=== PATIENT | female | born 1940 | race Caucasian/White ===

== ENCOUNTER → 2016-05-11 | Outpatient (CLI) | payer MEDICARE, MEDICAID ==
[~2016-05-11] MED LIST: ACET-2128 PO; AMIL5TAB PO; ARIP5TAB10 PO; ATOR20TA27 PO; CALC-586 PO; DIVA250T PO; DOCU-168 PO; ESCI10TA44 PO; FURO-35 PO; GABA-218 PO; GUAI-1166 PO; HYDR-2164 PO; IPRA3AMP AEROSOL; LEVO250T2 PO; LORA0.5T2 PO; POLY15DR57 BOTH EYES; POTA20TA68 PO; PROP10TA PO; RALO60TA12 PO; RANI150C11 PO; SALI10004 PO; TEMA7.5C20 PO
[2016-05-11 06:23] LABS: ANION GAP 10 MEQ/L (5-15); BUN/CREATININE RATIO 23 RATIO (6-26); CALCIUM 9.5 MG/DL (8.4-10.2); CHLORIDE 103 MEQ/L (98-107); CO2 - CARBON DIOXIDE 33 MEQ/L (22-30); CREATININE 1.1 MG/DL (0.7-1.2); GLOMERULAR FILTRATION RATE 48; GLUCOSE 88 MG/DL (65-110); POTASSIUM 3.8 MEQ/L (3.6-5); SODIUM 146 MEQ/L (134-144)
== END ==
LOC: LABNH.BH 00:14
PROVIDERS: ATTEND Family Medicine
DX: E78.5 Hyperlipidemia, unspecified (principal); E87.6 Hypokalemia
CPT/HCPCS: 36415; 80048; P9604

== ENCOUNTER → 2016-06-04 | Outpatient (CLI) | payer MEDICARE, MEDICAID ==
[2016-06-04 08:52] LABS: BLOOD, URINE NEGATIVE (NEGATIVE); COLOR,URINE YELLOW (YELLOW); LEUKOCYTE ESTERASE ,URINE TRACE (NEGATIVE); NITRITE,URINE NEGATIVE (NEGATIVE); UROBILINOGEN,URINE 0.2 EU/DL (NORMAL)
== END ==
LOC: LABN.BH 08:42
PROVIDERS: ATTEND Family Medicine
DX: R32 Unspecified urinary incontinence (principal)
CPT/HCPCS: 81003; 87086

== ENCOUNTER → 2016-06-11 | Outpatient (CLI) | payer MEDICARE, MEDICAID ==
[2016-06-11 07:56] LABS: HCT - HEMATOCRIT 39.9 % (36-46); HGB - HEMOGLOBIN 12.7 GM/DL (12-16); MEAN CORPUSCULAR HGB 32.1 UUG (26-34); MEAN CORPUSCULAR HGB CONC(MCHC 31.8 GM/DL (31-37); MEAN CORPUSCULAR VOLUME 100.8 UM3 (80-100); MEAN PLATELET VOLUME 10.6 UM3 (9.4-12.4); RED BLOOD COUNT 3.96 M/MM3 (4.00-5.20); WBC - WHITE BLOOD COUNT 6.3 T/MM3 (4.5-11.0)
[2016-06-11 08:05] LABS: ALBUMIN 3.2 G/DL (3.5-5.0); ALBUMIN/GLOBULIN RATIO 1.2 RATIO (1.1-2.2); ALKALINE PHOSPHATASE 63 U/L (38-126); ALT (SGPT) 24 U/L (9-52); ANION GAP 11 MEQ/L (5-15); AST (SGOT) 17 U/L (14-36); BUN/CREATININE RATIO 17 RATIO (6-26); CALCIUM 9.2 MG/DL (8.4-10.2); CHLORIDE 103 MEQ/L (98-107); CO2 - CARBON DIOXIDE 34 MEQ/L (22-30); CREATININE 1.3 MG/DL (0.7-1.2); GLOMERULAR FILTRATION RATE 40; GLUCOSE 98 MG/DL (65-110); POTASSIUM 3.6 MEQ/L (3.6-5); SODIUM 148 MEQ/L (134-144); TOTAL PROTEIN 5.8 G/DL (6.3-8.2)
[2016-06-11 08:24] LABS: EOSINOPHILS # (MANUAL) 0.4 T/MM3 (0-0.5); LYMPHOCYTES # (MANUAL) 1.6 T/MM3 (1-4.8); METAMYELOCYTES # 0.1 T/MM3; MONOCYTES # (MANUAL) 0.6 T/MM3 (0-0.8); NEUTROPHILS #(MANUAL)-ABSOLUTE 3.6 T/MM3 (1.8-7.7); TOTAL CELLS COUNTED 100 %
[2016-06-11 08:36] LABS: THYROID STIM HORMONE-TSH 2.39 MIU/L (0.47-4.68)
== END ==
LOC: LABNH.BH 00:19
PROVIDERS: ATTEND Psychiatry & Neurology Psychiatry
DX: R41.841 Cognitive communication deficit (principal); Z79.899 Other long term (current) drug therapy
CPT/HCPCS: 36415; 80053; 82607; 84443; 85007; 85027; 86592; P9604

== ENCOUNTER → 2016-06-16 | Outpatient (CLI) | payer MEDICARE, MEDICAID | LOC: LABNH.BH 01:37 | PROVIDERS: ATTEND Psychiatry & Neurology Psychiatry | DX: R41.9 Unspecified symptoms and signs involving cognitive functions and awareness (principal) | CPT/HCPCS: 36415; 82746; 83090; 83921; P9604 ==

== ENCOUNTER → 2016-06-19 | Outpatient (CLI) | payer MEDICARE, MEDICAID ==
[~2016-06-19] MED LIST changes: +IOHEXOL 300 MG/ML 50ml INJECTION ONE; +NORMAL SALINE 100 ML ONE; +SALINE FLUSH 10ml SYRINGE ONE
--- NOTE | 2016-06-19 09:40 | DI ---
Indication: ITS.REASON: CONFUSION PROCEDURE: CT HEAD W/WO CONTRAST: Comparison: July 14, 2013 Technique: Axial CT images through the head were performed without and with IV contrast. Iterative Reconstruction dose reducing technique was utilized. 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 The ventricles are unchanged. The brainstem, cerebellum, and cerebral hemispheres have a normal morphology and CT attenuation. No hemorrhage, mass effect, mass lesions, or edema is evident. No areas of abnormal enhancement are seen. The visualized portions of the skull base, sinuses, and calvarium demonstrate no abnormality. IMPRESSION: No acute intracranial abnormality. Stable head CT. .
== END ==
LOC: IMA 08:16
PROVIDERS: ATTEND Psychiatry & Neurology Psychiatry
DX: R41.0 Disorientation, unspecified (principal)
CPT/HCPCS: 70470; J7050; Q9967

== ENCOUNTER → 2016-07-06 | Outpatient (CLI) | payer MEDICARE, MEDICAID ==
[~2016-07-06] MED LIST changes: -IOHEXOL 300 MG/ML 50ml INJECTION ONE; -NORMAL SALINE 100 ML ONE; -SALINE FLUSH 10ml SYRINGE ONE
[2016-07-06 06:15] LABS: URIC ACID 8.8 MG/DL (2.5-7.5)
[2016-07-06 06:20] LABS: VALPROIC ACID/DEPAKOTE 82.4 UG/ML (50-120)
== END ==
LOC: LABNH.BH 01:01
PROVIDERS: ATTEND Psychiatry & Neurology Psychiatry
DX: F32.9 Major depressive disorder, single episode, unspecified (principal)
CPT/HCPCS: 36415; 80164; 84550; P9604

== ENCOUNTER → 2016-07-16 | Outpatient (CLI) | payer MEDICARE, MEDICAID ==
--- NOTE | 2016-07-16 11:15 | DI ---
Indication: ITS.REASON: G20 Parkinson's disease PROCEDURE: MRI BRAIN W/O CONTRAST: Encounter: Initial Comparisons: Head CT dated June 19, 2016 Technique: Multiplanar, multisequence, MR imaging of the head without contrast was acquired. FINDINGS: Severe artifacts degrading the diffusion-weighted sequences precluding evaluation of the posterior fossa and occipital lobes as well as the right parietal lobe. Moderate generalized atrophy. The ventricles are proportional to atrophy and stable from the comparison. 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 There are small nonspecific punctate areas of T2-weighted and T2 FLAIR weighted signal abnormality in the deep frontoparietal white matter that most likely represent small vessel ischemic disease. This is of a degree that is considered to be normal for the patient's age. The brain stem, cerebellum, and cerebral hemispheres otherwise have a normal morphologic appearance as well as MR signal intensity on all pulse sequences. No acute infarct in the visualized brain parenchyma on the diffusion sequences with limitations as above. There is no evidence of an intracranial mass lesion or intracranial hemorrhage. The visualized portions of the orbits, calvarium, paranasal sinuses, and skull base demonstrate no significant abnormality. IMPRESSION: Shunted hydrocephalus. Moderate atrophy, otherwise unremarkable exam for the patient's age. .
== END ==
LOC: IMA 09:15
PROVIDERS: ATTEND Electrodiagnostic Medicine
DX: G20 Parkinson's disease (principal); G91.4 Hydrocephalus in diseases classified elsewhere; R41.3 Other amnesia; Z98.2 Presence of cerebrospinal fluid drainage device

== ENCOUNTER 2016-09-02 09:46 | Inpatient (IN) ==
[2016-09-02] MEDS ORDERED: ONDANSETRON ODT 4 MG TABLET PO ONE (10:12)
[2016-09-02] MEDS ORDERED: HYDROCODONE/APAP 5mg/325mg TABLET PO ONE (10:12)
--- NOTE | 2016-09-02 10:13 | Emergency Department Report ---
Lower Extremity Injury HPI - General Chief Complaint: Extremity Injury, Lower Stated Complaint: fall Time Seen by Provider: 09/02/16 10:11 Source: patient Mode of arrival: wheelchair Limitations: no limitations - History of Present Illness HPI Narrative: 76yo woman presents to the ER today after a fall. Pts left ankle is bruised, swollen, TTP, and cannot bear weight. Pt has a baseline tremor. MD complaint: ankle injury Onset (ago): hour(s) Place: home Severity: severe Exacerbating factors: weight bearing Context: fall Associated symptoms: snap/pop sensation, unable to bear weight Treatments prior to arrival: cold therapy - Related Data Home Medications Medication Instructions Recorded Confirmed Amiloride HCl 5 mg PO DAILY #0 12/31/09 09/02/16 Propranolol HCl 5 mg PO BID #0 12/31/09 09/02/16 hydroCHLOROthiazide 25 mg PO DAILY #0 12/31/09 09/02/16 [Hydrochlorothiazide] raNITIdine HCl [Ranitidine HCl] 150 mg PO HS #0 10/14/11 09/02/16 Escitalopram Oxalate [Lexapro] 10 mg PO DAILY #0 11/30/11 09/02/16 Furosemide 10 mg PO DAILY #0 11/30/11 09/02/16 Gabapentin 200 mg PO TID #0 11/30/11 09/02/16 Atorvastatin Calcium 40 mg PO HS #0 04/22/12 09/02/16 Divalproex ER [Depakote ER] 750 mg PO BID #0 tab 09/01/14 09/02/16 Raloxifene HCl 60 mg PO DAILY #0 09/01/14 09/02/16 Acetaminophen [Acetaminophen Extra 500 mg PO Q4H PRN 09/02/16 09/02/16 Strength] Calcium 600 + D [Caltrate + D] 1 tab PO BID 09/02/16 09/02/16 Docusate Sodium [Colace] 100 mg PO DAILY PRN 09/02/16 09/02/16 Loratadine [Claritin] 10 mg PO ACB 09/02/16 09/02/16 Multivitamin with Iron [One Daily 1 tab PO DAILY 09/02/16 09/02/16 with Iron] Polyvinyl Alcohol [Artificial 2 drop EACH EYE Q4H PRN 09/02/16 09/02/16 Tears] Potassium Chloride [Klor-Con 10] 30 meq PO DAILY 09/02/16 09/02/16 Saliva Substitute Mouthwash 1 dose MM DAILY PRN 09/02/16 09/02/16 [Biotene Dry Mouth Oral Rinse] Trazodone [Desyrel] 50 mg PO HS 09/02/16 09/02/16 Trazodone [Desyrel] 100 mg PO HS PRN 09/02/16 09/02/16 Allergies Allergy/AdvReac Type Severity Reaction Status Date / Time celecoxib Allergy Unknown Verified 09/02/16 10:05 niacin Allergy Unknown Verified 09/02/16 10:05 oxybutynin Allergy Unknown Verified 09/02/16 10:05 [facility] Patient Stated Medical History Cerebrovascular Accident Yes Parkinson's Disease Yes Glaucoma Yes Hypotension Yes Gastroesophageal Reflux Yes Disease Hx Incontinence Yes Osteoarthritis Yes Bipolar Disorder Yes Physical Exam - Limitations Limitations: no limitations - General General appearance: alert, in no apparent distress, obese - Normal Exams: Head:: Normocephalic without trauma Eyes:: Pupils are PERRLA w/ EOMI, No scleral icterus, irritation, or foreign bodies noted ENMT:: No facial trauma, nasal exudates, pharyngeal erythema, or exudates are noted Neck:: Full range of motion, without adenopathy, JVD, bruits or thyromegaly Chest/Respirations:: Clear all nunez Cardiovascular:: Regular rate and rhythm Abdomen:: Bowel sounds positive Lymphatic:: No lymphadenopathy, or lymphedema noted Integumentary:: No rashes, hives, or bruising noted, hair and nails, without abnormality Neurological:: Patient is alert, and oriented, cranial nerves, motor/sensory/ cerebellar, exams w/o gross deficits, to observation Psychiatric:: Patient exhibits, appropriate attention, emotion and affect - Expanded Lower Extremity Exam Ankle exam: Present: tenderness, swelling, abrasion (Medially), ecchymosis, deformity, crepitus, dislocation, tenderness over talofibular lig. Absent: laceration 1 - Swelling/ecchymosis 2 - Swelling/ecchymosis Neurovascular/Tendon exam: Present: normal capillary refill - Skin Skin exam: Present: warm, dry, erythema, other (abrasion over medial malleolus) Course Course Narrative: Informed pt of dx and likelihood of surgery. Pt is very afraid of surgery due to 'dementia' after waking from anesthesia. Stated that I would inform ortho, and she should inform anesthesia of her concerns and they could help tailor anesthesia or treat post-op to prevent dementia issues. Orthopedic surgeon presented to the ER. After his own evaluation and diagnosis, pt was given a hematoma block and ankle was reduced in the ER. Leg was splinted. After discussion with his partner, Ortho has decided to admit pt and plan for surgical fixation tomorrow. - Consultations Consultation #1: Dr. Gloria: Will come to ER to set ankle. Requests eqipment/meds at bedside. Time: 10:53 Vital Signs Temperature 98.3 F 09/02/16 09:46 Pulse Rate 85 09/02/16 09:46 Respiratory Rate 16 09/02/16 09:46 Blood Pressure 146/82 H 09/02/16 09:46 Pulse Oximetry 93 09/02/16 09:46 Temperature 98.4 F 09/04/16 07:31 Pulse Rate 104 H 09/04/16 07:31 Respiratory Rate 16 09/04/16 07:31 Blood Pressure 130/68 09/04/16 07:31 Pulse Oximetry 93 09/04/16 07:31 Extremity Injury, Lower - Differential Diagnosis Likely: ankle sprain and strain, acute internal derangement of knee, ankle fracture - Medical Records Attestation: I reviewed the patient's medical records. - Lab Data Result diagrams: 09/04/16 04:50 09/04/16 04:50 - Radiology Data Attestation: I reviewed the patient's radiology results. Ankle: Displaced closed posttraumatic trimalleolar ankle fracture with severe lateral subluxation of the talus. Tib/fib: No acute fracture of the proximal tibia or fibula. Disposition Clinical Impression: Closed displaced bimalleolar fracture of left ankle Qualifiers: Encounter type: initial encounter Qualified Code(s): S82.842A - Displaced bimalleolar fracture of left lower leg, initial encounter for closed fracture Disposition: 02 To [facility] Condition: Stable Time of Disposition: 12:30 - Seen By: physician
--- NOTE | 2016-09-02 10:57 | XRay Report ---
Indication: Ankle pain PROCEDURE: XR ankle LT min 3V: Encounter: Initial Comparison: None Findings: Displaced fractures of the medial malleolus and distal fibula. There is lateral subluxation and near dislocation of the talus relative to the tibia with lateral tilting. Medial malleolar fracture fragment is displaced by 1.5 cm laterally. Distal fibular fracture shows lateral displacement by greater than one shaft width and overriding by up to 3 cm. There appears to be small fracture of the posterior distal tibia on the lateral view as well. Impression: Displaced closed posttraumatic trimalleolar ankle fracture with severe lateral subluxation of the talus. .
--- NOTE | 2016-09-02 10:58 | XRay Report ---
Indication: Distal fx PROCEDURE: XR tib/fib LT 2V: Encounter: Initial Comparison: Ankle radiographs from the same date Findings: No acute fracture or dislocation of the Roxanol to mid tibia or fibula. Ankle fractures are described on the ankle exam. Impression: No acute fracture of the proximal tibia or fibula .
[2016-09-02] MEDS ORDERED: BUPIVACAINE 0.25% (2.5mg/ml) PF 30ml INJECTION SQ ONE (11:01)
--- NOTE | 2016-09-02 12:33 | XRay Report ---
Indication: fx PROCEDURE: XR ankle LT min 3V: Encounter: Initial Comparison: September 02, 2016 at 1033 Findings: Interval closed reduction of the trimalleolar ankle fracture with improved alignment and less lateral subluxation of the talus. Decreasing displacement of the medial malleolar and distal fibular fracture fragments. Overlying splinting material obscures fine bony detail. Impression: Improved alignment following closed reduction. .
--- NOTE | 2016-09-02 12:40 | Orthopedic Consult Note ---
Orthopedic Consultation HPI - Consultation Info Consult Date: 09/02/16 Attending Physician: Foreign Gloria MD Consult Reason: fracture (Left Ankle Fracture Dislocation) - History of Present Illness 76 yo female resident at [facility] fell this morning at PT. Has chronic bilateral ankle and pedal edema, but new deformity and left ankle pain. No prior history of ankle pain. Brought to [facility]. I was contacted by Dr. Galicia to evaluate. Review of Systems - Constitutional Constitutional: Absent: chills, fever(s), lethargy - EENT Eyes: Absent: blurry vision, change in vision Ears, nose, mouth, throat: Absent: lightheadedness - Cardiovascular Cardiovascular: Present: edema. Absent: palpitations, dyspnea on exertion Vascular: Present: pedal edema. Absent: varicosities - Respiratory Respiratory: Absent: cough, dyspnea - Gastrointestinal Gastrointestinal: Absent: constipation, diarrhea - Musculoskeletal Musculoskeletal: Present: deformity, joint pain Additional comments: See HPI - Integumentary/Breasts Integumentary: Absent: lesions, rash, wounds - Neurological Neurological: Present: abnormal speech, restless legs, tremor(s) - Psychiatric Psychiatric: Present: anxiety, depression - Endocrine Endocrine: Absent: cold intolerance, palpitations - Hematologic/Lymphatic Hematologic/Lymphatic: Absent: easy bleeding, easy bruising PFS Patient Stated Medical History Cerebrovascular Accident Yes Parkinson's Disease Yes Glaucoma Yes Hypotension Yes Gastroesophageal Reflux Yes Disease Hx Incontinence Yes Osteoarthritis Yes Bipolar Disorder Yes Surgical History: Non-contributory Family History: No significant PFMHx - Social History Smoking status: Unknown if ever smoked Substance use type: does not use Alcohol intake: never Housing: alf Medications Home Medications Medication Instructions Recorded Confirmed Type Amiloride HCl 5 mg PO DAILY #0 12/31/09 09/02/16 History Propranolol HCl 5 mg PO BID #0 12/31/09 09/02/16 History hydroCHLOROthiazide 25 mg PO DAILY #0 12/31/09 09/02/16 History [Hydrochlorothiazide] raNITIdine HCl [Ranitidine HCl] 150 mg PO HS #0 10/14/11 09/02/16 History Escitalopram Oxalate [Lexapro] 10 mg PO DAILY #0 11/30/11 09/02/16 History Furosemide 10 mg PO DAILY #0 11/30/11 09/02/16 History Gabapentin 200 mg PO TID #0 11/30/11 09/02/16 History Atorvastatin Calcium 40 mg PO HS #0 /03/0609/02/16 History Divalproex ER [Depakote ER] 750 mg PO BID #0 tab 09/01/14 09/02/16 History Raloxifene HCl 60 mg PO DAILY #0 09/01/14 09/02/16 History Acetaminophen [Acetaminophen Extra 500 mg PO Q4H PRN 09/02/16 09/02/16 History Strength] Calcium 600 + D [Caltrate + D] 1 tab PO BID 09/02/16 09/02/16 History Docusate Sodium [Colace] 100 mg PO DAILY PRN 09/02/16 09/02/16 History Loratadine [Claritin] 10 mg PO ACB 09/02/16 09/02/16 History Multivitamin with Iron [One Daily 1 tab PO DAILY 09/02/16 09/02/16 History with Iron] Polyvinyl Alcohol [Artificial 2 drop EACH EYE Q4H PRN 09/02/16 09/02/16 History Tears] Potassium Chloride [Klor-Con 10] 30 meq PO DAILY 09/02/16 09/02/16 History Saliva Substitute Mouthwash 1 dose MM DAILY PRN 09/02/16 09/02/16 History [Biotene Dry Mouth Oral Rinse] Trazodone [Desyrel] 50 mg PO HS 09/02/16 09/02/16 History Trazodone [Desyrel] 100 mg PO HS PRN 09/02/16 09/02/16 History Allergies Allergy/AdvReac Type Severity Reaction Status Date / Time celecoxib Allergy Unknown Verified 09/02/16 10:05 niacin Allergy Unknown Verified 09/02/16 10:05 oxybutynin Allergy Unknown Verified 09/02/16 10:05 Orthopedic Exam Vital signs: Temperature 98.3 F 09/02/16 09:46 Pulse Rate 88 09/02/16 10:52 Respiratory Rate 20 09/02/16 10:52 Blood Pressure 139/93 H 09/02/16 10:52 Pulse Oximetry 87 L 09/02/16 11:04 Oxygen Delivery Method Nasal Cannula Oxygen Flow Rate 2 - Constitutional General Appearance: Present: alert, orientated x3, mild distress, looks stated age - Respiratory Exam Present: non-labored. Absent: wheezes - Cardiovascular Exam Present: Regular Rate/Rhythm, peripheral edema, pedal pulses intact Capillary Refill: < 2-3 Seconds - Abdominal Exam Present: soft. Absent: tenderness, distended - Extremities Exam Present: edema, tenderness Comments: Valgus deformity to left ankle. Edema, swelling. Mild ecchymosis medially. TTP medial and lateral malleolus with crepitus. NVI. Knee exam normal. Calf supple. Achilles intact. NTTP base of 5th. - Detailed Extremities Exam: Vascular Peripheral pulses: 1+ posterior tibialis (L), 1+ dorsalis pedis (L) - Detailed Lower Extremity Exam Knee: Bilateral normal inspection Ankle: Left crepitus, Left dislocation, Left swelling, Left tenderness, Left decreased ROM, Right normal inspection - Integumentary Exam Present: pink, warm, dry, intact Comments: Small superficial abrasion medial ankle. - Neurological Exam Present: intact to light touch, no deficits - Psychiatric Exam Present: alert, oriented, attentive - Diagnostic results Ankle/Foot x-ray: report reviewed, image reviewed Impression and Recommendation (1) Closed displaced bimalleolar fracture of left ankle Current visit: Yes Qualifiers: Encounter type: initial encounter Qualified Code(s): S82.842A - Displaced bimalleolar fracture of left lower leg, initial encounter for closed fracture Status: Acute I discussed the findings today with the patient regarding the diagnosis, imaging , history, and physical exam. The diagnosis was discussed utilizing models and diagrams. The natural history of the diagnosis was discussed. Options for treatment were reviewed. I recommended an acute reduction of her fracture dislocation with application of a splint. This was performed with local hematoma block and the patient tolerated this well. Will have the hospitalist admit in anticpation for ORIF of the left ankle tomorrow by Dr. Kamara. The risks , benefits, alternatives, and potential complications including, but not limited to: infection, anesthesia risk, risk of continued pain, risk of neurovascular injury, and others were discussed. We reviewed the rehabilitation , recuperation, and recovery timeframes as well as overall expectations. The patient wishes to proceed with informed consent. NPO after midnight. Strict bedrest with ice and elevation of the left lower extremity. Swelling will be evaluated in the morning prior to surgery. Discussed the possibility of cancelling if too swollen. Pain control now. May eat now. Hospital Course Summary Disclaimer: The visit summary below is not to be considered part of the above Progress Note.
--- NOTE | 2016-09-02 13:08 | History & Physical Report ---
<Shantel Mendieta - Last Filed: 09/02/16 13:05> History of Present Illness Date: 09/02/16 Chief complaint: left ankle injury HPI: Antonette Marcus is a 76 y/o woman who resides at [facility]. She has a hx of tremor, gait instability, and possibly underlying Parkinson's disease. While working with physical therapy on 09/02/16, she reports that she stepped up on a sandstone rock, and almost immediately fell down, injuring her left ankle. She was unable to bear weight. She denies hitting her head or injuring her back/ neck or other areas. She also reports that other than her gait problems, which actually have been improving since off Abilify, she's been in her typical state of health. She was transferred to [facility] following the injury, where an ankle x- ray showed a trimalleolar fx with lateral sublux of the talus. Dr. Gloria was consulted and saw the patient in the ED. He reduced the dislocation and recommended bedrest and surgery tomorrow if her ankle is not too swollen. The hospitalist service was called upon to admit the patient given her comorbid conditions. Review of Systems All systems: reviewed and no additional remarkable complaints except as stated - Constitutional Constitutional: Absent: fever(s), headache(s) - EENMT Eyes: Absent: blurry vision, change in vision Nose: Absent: obstruction Mouth/Throat: Absent: sore throat - Cardiovascular Cardiovascular: Present: edema. Absent: palpitations, dyspnea on exertion Vascular: Present: pedal edema. Absent: varicosities - Respiratory Respiratory: Absent: cough, dyspnea - Gastrointestinal Gastrointestinal: Absent: abdominal pain, constipation, diarrhea, nausea, vomiting - Genitourinary Genitourinary: Present: other (frequent urination) Menstruation: post menopausal - Musculoskeletal Musculoskeletal: Present: as per HPI, back pain, joint swelling (left ankle), limited range of motion - Integumentary/Breasts Integumentary: Absent: wounds - Neurological Neurological: Present: abnormal gait. 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 Mcgowan). Hysterectomy 2007. Appendectomy. cholecystectomy. Cystoscopy with dilatation. Bilateral cataracts. Echo in 2007 - preserved EF, possible grade I/IV diastolic dysfunction Family History: Mother in her 80s. She had skin cancer and lung disease. Father of heart problems and also had diabetes and kidney problems. Brother had cancer but is in remission. 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 Does patient use chewing tobacco?: No Social history: PCP - Jacqui Neuro - [facility] - [facility] Medications Home Medications Medication Instructions Recorded Confirmed Type Amiloride HCl 5 mg PO DAILY #0 12/31/09 09/02/16 History Propranolol HCl 5 mg PO BID #0 12/31/09 09/02/16 History hydroCHLOROthiazide 25 mg PO DAILY #0 12/31/09 09/02/16 History [Hydrochlorothiazide] raNITIdine HCl [Ranitidine HCl] 150 mg PO HS #0 10/14/11 09/02/16 History Escitalopram Oxalate [Lexapro] 10 mg PO DAILY #0 11/30/11 09/02/16 History Furosemide 10 mg PO DAILY #0 11/30/11 09/02/16 History Gabapentin 200 mg PO TID #0 11/30/11 09/02/16 History Atorvastatin Calcium 40 mg PO HS #0 04/22/12 09/02/16 History Divalproex ER [Depakote ER] 750 mg PO BID #0 tab 09/01/14 09/02/16 History Raloxifene HCl 60 mg PO DAILY #0 09/01/14 09/02/16 History Acetaminophen [Acetaminophen Extra 500 mg PO Q4H PRN 09/02/16 09/02/16 History Strength] Calcium 600 + D [Caltrate + D] 1 tab PO BID 09/02/16 09/02/16 History Docusate Sodium [Colace] 100 mg PO DAILY PRN 09/02/16 09/02/16 History Loratadine [Claritin] 10 mg PO ACB 09/02/16 09/02/16 History Multivitamin with Iron [One Daily 1 tab PO DAILY 09/02/16 09/02/16 History with Iron] Polyvinyl Alcohol [Artificial 2 drop EACH EYE Q4H PRN 09/02/16 09/02/16 History Tears] Potassium Chloride [Klor-Con 10] 30 meq PO DAILY 09/02/16 09/02/16 History Saliva Substitute Mouthwash 1 dose MM DAILY PRN 09/02/16 09/02/16 History [Biotene Dry Mouth Oral Rinse] Trazodone [Desyrel] 50 mg PO HS 09/02/16 09/02/16 History Trazodone [Desyrel] 100 mg PO HS PRN 09/02/16 09/02/16 History Allergies Allergy/AdvReac Type Severity Reaction Status Date / Time celecoxib Allergy Unknown Verified 09/02/16 10:05 niacin Allergy Unknown Verified 09/02/16 10:05 oxybutynin Allergy Unknown Verified 09/02/16 10:05 Exam Vital Signs: Temperature 98.2 F 09/02/16 12:42 Pulse Rate 77 09/02/16 12:42 Respiratory Rate 18 09/02/16 12:42 Blood Pressure 127/75 09/02/16 12:42 Pulse Oximetry 95 09/02/16 12:42 Height: 1.6 m Weight: 77.111 kg - Constitutional Present: no acute distress, well nourished, well developed, obese - Routine HEENT Exam Head: Present: normocephalic Eye: Present: PERRL. Absent: conjunctival icterus, scleral injection ENT: Present: mucous membranes dry, oropharynx clear - Routine Neck Exam Present: supple. Absent: lymphadenopathy - Routine Respiratory Exam Present: CTA bilaterally - Routine Cardiovascular Exam Present: RRR, S1, S2 - Routine Abdominal Exam Present: soft, normoactive bowel sounds, non distended, non tender - Routine Extremities Exam Present: edema (right LE; giana hose in place) Comments: splint on LLE; wiggles toes well, good cap refill, sensation intact to light touch - Routine Skin Exam Present: intact, dry, warm - Routine Neurological Exam Present: alert, oriented X3, vision grossly intact, hearing grossly intact, tremors - Routine Psychiatric Exam Present: normal affect, normal thought process Results - Imaging and Cardiology left ankle Status: image reviewed by me Additional comments: trimalleolar fx Assessment and Plan (1) Palpitations Current visit: Yes Status: Chronic (2) Gait instability Current visit: Yes Status: Chronic (3) CKD (chronic kidney disease) stage 3, GFR 30-59 ml/min Current visit: Yes Status: Chronic (4) Peripheral edema Current visit: Yes Status: Chronic (5) Fracture dislocation of ankle Current visit: Yes Status: Acute GI Prophylaxis: Rantidine Resuscitation Status: Do Not Resuscitate Assessment and Plan: Admit under hospitalist service with consultation to Dr. Gloria/Anh. Left ankle fx/dislocation -reduced and splinted in ED per Dr. Glroia -Dr. Kamara going to take over her care, likely sx tomorrow if swelling is controlled -ok to give dose of Lovenox x1 now -pre-op testing ordered (including hgb A1c - one clinic note documented DM and she's had some mild hyperglycemia - DM would affect bone healing) -NPO at midnight -consult Dr. Sanches for metabolic bone eval. Palpitations -check electrolytes, EKG, mag -monitor on tele -TSH was 2.20 in the clinic on 08/10/16 Gait instability; tremor; possible early Parkinson's -baseline: she had been walking with a walker -consult PT/OT postop -saw Dr. Verma in Jun, 2016 - Abilifelicitay was dc'd and he wanted to monitor response off this med before starting Carbidopa/Levadopa possible DI (nephrogenic DI per previous H&Ps) -being worked up by PCP; to see software quality manager in Oct, 2016 (Dr. Fajardo) -urine Na 59 and osmo 253 in clinic on 08/10/16 -clinic records indicate serum Na typically runs upper end of normal CKD 3 -baseline cr 1.3 home meds reviewed (compared to med list in clinic records as well) -she's on 3 different diuretics: amiloride, furosemide, HCTZ (presumably for edema), which could be contributing to her complaints of excessive thirst and frequent urination - at this time will hold amiloride and HCTZ; continue potassium for now especially since she will be on IVF for sx -continue psych meds Advanced directives -Siena (son) is DPOA -DNR - Time spent with patient 25 - 35 minutes Hospital Course Summary Disclaimer: The visit summary below is not to be considered part of the above Progress Note. Hospital Course: 09/02/16 14:06 Admit under hospitalist service with consultation to Dr. Gloria/Anh. Left ankle fx/dislocation -reduced and splinted in ED per Dr. Gloria -Dr. Kamara going to take over her care, likely sx tomorrow if swelling is controlled -ok to give dose of Lovenox x1 now -pre-op testing ordered (including hgb A1c - one clinic note documented DM and she's had some mild hyperglycemia - DM would affect bone healing) -NPO at midnight -consult Dr. Sanches for metabolic bone eval. Palpitations -check electrolytes, EKG, mag -monitor on tele -TSH was 2.20 in the clinic on 08/10/16 Gait instability; tremor; possible early Parkinson's -baseline: she had been walking with a walker -consult PT/OT postop -saw Dr. Verma in Jun, 2016 - Abilify was dc'd and he wanted to monitor response off this med before starting Carbidopa/Levadopa possible DI (nephrogenic DI per previous H&Ps) -being worked up by PCP; to see software quality manager in Oct, 2016 (Dr. Fajardo) -urine Na 59 and osmo 253 in clinic on 08/10/16 -clinic records indicate serum Na typically runs upper end of normal CKD 3 -baseline cr 1.3 home meds reviewed (compared to med list in clinic records as well) -she's on 3 different diuretics: amiloride, furosemide, HCTZ (presumably for edema), which could be contributing to her complaints of excessive thirst and frequent urination - at this time will hold amiloride and HCTZ; continue potassium for now especially since she will be on IVF for sx -continue psych meds Advanced directives -Siena (son) is DPOA -DNR <Jaiden Carpenter - Last Filed: 09/02/16 20:30> History of Present Illness Date: 09/02/16 [facility] Patient Stated Medical History Cerebrovascular Accident Yes Parkinson's Disease Yes Glaucoma Yes Hypotension Yes Gastroesophageal Reflux Yes Disease Hx Incontinence Yes Osteoarthritis Yes Bipolar Disorder Yes Exam Vital Signs: Temperature 97.6 F 09/02/16 13:12 Pulse Rate 82 09/02/16 16:51 Respiratory Rate 16 09/02/16 16:51 Blood Pressure 129/81 09/02/16 13:12 Pulse Oximetry 94 09/02/16 16:51 Oxygen Delivery Method Nasal Cannula Oxygen Flow Rate 2 Height: 1.6 m Weight: 83.8 kg Results - Labs CBC & Chem 7: 09/02/16 13:50 09/02/16 13:50 Assessment and Plan (1) Fracture dislocation of ankle Current visit: Yes Status: Acute (2) Gait instability Current visit: Yes Status: Chronic (3) Palpitations Current visit: Yes Status: Chronic (4) CKD (chronic kidney disease) stage 3, GFR 30-59 ml/min Current visit: Yes Status: Chronic (5) Peripheral edema Current visit: Yes Status: Chronic Assessment and Plan: Have independently interviewed and examined pt. Chart reviewed. Case discussed with ED physician and my FLIGHT DATA TECHNICIAN. Care plan developed with my supervision; agree with above. Working with therapy when hit foot. Pretty severe pain. Couldn't bear weight post. Found to have Fx/dislocation in ED. Redused by ortho in ED. Needing surgical fixation for stabilization. Currently, pain control. Breathing has been stable without SOA, cough or congestion. No chest pressure or pain. Denies nausea or ab pain. No f/c. Lungs: decreased, no distress/crackles/wheezes. CV: regular AB; Soft nt/nd +BS MSE: awake alert appropriate Plan: Inpatient admission. Anticipate greater than 2 midnights of care needed secondary to planned ORIF tomorrow. Complicating factors and comorbidities are her age, CKD, and chronic tremor (Possible Parkinson's). Ortho consult placed. Control pain and nausea. Bedrest until after procedure. Monitor lab. IS for pulmonary toilet. Medically pt stable for surgical intervention. Hospital Course Summary Disclaimer: The visit summary below is not to be considered part of the above Progress Note.
[2016-09-02] MEDS ORDERED: ONDANSETRON 4 MG/2 ML INJECTION IVP PRN (13:15)
[2016-09-02] MEDS ORDERED: HYDROMORPHONE 2 MG/ML INJECTION IVP PRN (13:15)
[2016-09-02] MEDS ORDERED: SALINE FLUSH 10ml SYRINGE IV PRN (13:16)
[2016-09-02] MEDS ORDERED: SALIVA SUBSTITUTE MOUTHWASH 237ml MM PRN (13:36)
[2016-09-02] MEDS ORDERED: TRAZODONE 100 MG TABLET PO PRN (13:36)
[2016-09-02] MEDS ORDERED: ARTIFICIAL TEARS 15ml EACH EYE PRN (13:36)
[2016-09-02] MEDS ORDERED: DOCUSATE SODIUM 100 MG CAPSULE PO PRN (13:36)
--- NOTE | 2016-09-02 13:59 | XRay Report ---
Indication: pre op PROCEDURE: XR chest 1V: Encounter: Initial Comparison: May 01, 2016 Findings: Right-sided BUMPER AND PAINTER shunt catheter. Patient is rotated. Lungs are grossly clear. No pleural effusion or pneumothorax. Cardiac silhouette remains mildly enlarged. Mediastinal contours are somewhat poorly evaluated given the rotation. Pulmonary vascularity is stable and grossly normal. Impression: No focal pneumonia or overt congestive failure. .
[2016-09-02] MEDS ORDERED: ENOXAPARIN 40 MG/0.4 ML INJECTION SQ ONE (14:00)
--- NOTE | 2016-09-02 15:39 | Procedure Note ---
DATE: 09/02/2016 PRE PROCEDURE DIAGNOSIS Closed bimalleolar left ankle fracture. POSTPROCEDURE DIAGNOSIS Closed bimalleolar left ankle fracture. PROCEDURE closed reduction left bimalleolar ankle fracture dislocation. SURGEON Foreign Gloria MD HYDROELECTRIC STATION OPERATOR None. ANESTHESIA Hematoma block of fibula fracture with intra-articular Marcaine injection FLUIDS None. EBL None. COMPLICATIONS None. CONDITION Stable. DESCRIPTION OF PROCEDURE The patient was identified as was the operative extremity. Risks, benefits, alternatives and potential complications were discussed. The medial aspect of the left ankle was sterilely prepped with ChloraPrep swabs. A 22-gauge needle was inserted just below the palpable fracture line. 5 cc of hematoma were aspirated. The barrel was switched and this area was injected with 5 cc of 0.25 % Marcaine. A pressure dressing was then held followed by Band-Aid placement. The hip and knee were then internally rotated to expose the lateral malleolus fracture. Again the palpable step-off at the fracture site was identified. The area was cleansed with ChloraPrep and again a 22-gauge needle was inserted. 4 cc of blood were aspirated. The barrel was then switched and another 4 cc of 0.25% Marcaine were injected into the fracture site. This area was then cleansed with alcohol after pressure dressing had been then held and a Band-Aid applied. The blocks were then allowed to set up for 5-10 minutes as we measured the contralateral extremity for a sugar-tong splint made with plaster. After adequate analgesia from the block, the patient's left leg was draped off the side of her hospital bed. Factory Worker held behind the patient's knee. Gentle reduction with longitudinal traction and varus application of force to the foot distally while longitudinally applying traction applied palpable and visible reduction. This position was maintained while a well-padded three- point molded sugar-tong splint was applied to the ankle. Molding was maintained as the splint material was allowed to cure after it had been overwrapped with Ranulfo bandages. Repeat neurovascular examination showed the patient to remain neurovascularly intact. The patient's leg was elevated and ice was applied. She was to be admitted by the hospitalist service pending surgery tomorrow with Dr. Kamara, She will be NPO after midnight. Will plan for consent and open reduction internal fixation of her left bimalleolar ankle fracture. DANYA
[2016-09-02] MEDS ORDERED: BISACODYL 10 MG SUPPOSITORY RECTALLY PRN (15:44)
[2016-09-02] MEDS: GABAPENTIN 100 MG CAPSULE PO SCH ×2 (16:10→21:40)
[2016-09-02] MEDS: ACETAMINOPHEN 500 MG TABLET PO PRN ×2 (17:31→21:42)
[2016-09-02] MEDS: ATORVASTATIN 40 MG TABLET PO SCH (21:40)
[2016-09-02] MEDS: TRAZODONE 50 MG TABLET PO SCH (21:40)
[2016-09-02] MEDS: CALCIUM 600 + VIT D 400 TABLET PO SCH (21:41)
[2016-09-02] MEDS: RANITIDINE 150 MG TABLET PO SCH (21:42)
[2016-09-02] MEDS: PROPRANOLOL 10 MG TABLET PO SCH (21:42)
[2016-09-02] MEDS: 1/2 NS 1,000 ML IV SCH (22:45)
[2016-09-03] MEDS: LORATADINE 10 MG TABLET PO SCH (05:36)
[2016-09-03] MEDS: RALOXIFENE 60 MG TABLET PO SCH (09:14)
[2016-09-03] MEDS: ESCITALOPRAM 10 MG TABLET PO SCH (09:14)
[2016-09-03] MEDS: FUROSEMIDE 20 MG TABLET PO SCH (09:14)
[2016-09-03] MEDS: CALCIUM 600 + VIT D 400 TABLET PO SCH ×2 (09:14→20:59)
[2016-09-03] MEDS: GABAPENTIN 100 MG CAPSULE PO SCH ×3 (09:15→21:03)
[2016-09-03] MEDS: MULTI-VITAMIN + IRON TABLET PO SCH (09:15)
[2016-09-03] MEDS: PROPRANOLOL 10 MG TABLET PO SCH ×2 (09:22→21:00)
[2016-09-03] MEDS ORDERED: MIDAZOLAM 2mg/2ml INJECTION IVP ONE (13:09)
[2016-09-03] MEDS: NS 1,000 ML IV SCH (13:47)
--- NOTE | 2016-09-03 13:48 | Anesthesia Procedure Note ---
Peripheral Nerve Blockade - Procedure Physician: Jaiden Carpenter MD Date: 09/03/16 Discussion: Discussed risks/options/alternatives of anesthesia and questions answered. Patient consents. Nursing pain assessment noted. Block Start: 13:25 Block Stop: 13:24 Blocked Employed: Popliteal Indication: Post-Operative Pain Approach: Left Side Confirmed Position: Supine Patient: Consent, Risks/Benefits Discussed, Informed, Post Block Act. Discussed IV Sedation: Yes Midazolam (mg): 1 Initial Vital Signs: Temperature 98.3 F 09/02/16 09:46 Temperature Source Oral 09/02/16 09:46 Sepsis Recent Fever Within 48 Hours No 09/02/16 09:46 Sepsis Suspicion of Infection No 09/02/16 09:46 Sepsis New/Unexplained Change in Mental Status No 09/02/16 09:46 Sepsis Score/Level No Definite Risk 09/02/16 09:46 Sepsis Action Taken by Nursing No Action 09/02/16 09:46 Pulse Rate 85 09/02/16 09:46 Pulse Rhythm 09/02/16 09:46 Pulse Strength Normal 09/02/16 09:46 Respiratory Rate 16 09/02/16 09:46 Respiratory Effort 09/02/16 09:46 Respiratory Depth Normal 09/02/16 09:46 Respiratory Pattern 09/02/16 09:46 Blood Pressure 146/82 H 09/02/16 09:46 Blood Pressure Mean 103 09/02/16 09:46 Blood Pressure Position Sitting 09/02/16 09:46 Pulse Oximetry 93 09/02/16 09:46 Oxygen Delivery Method 09/02/16 09:46 Post Vital Signs: Temperature 98.4 F 09/03/16 13:03 Pulse Rate 101 H 09/03/16 13:03 Respiratory Rate 16 09/03/16 13:03 Blood Pressure 151/65 H 09/03/16 13:03 Pulse Oximetry 95 09/03/16 13:03 Oxygen Delivery Method Room Air Oxygen Flow Rate 2 Prep: Chlorhexadine/ETOH, Sterile Technique Ultrasound Used?: Yes - Nerve Simulator mA Set At: 5 Abates at (mA): 4 Twitch at: 1 Hz Needle Depth: 3 Muscle Response: No Paresthesia/Pain: None - Injectate Ropivacaine (%): 0.5 Ropivacaine (mL): 30 (given 5 ml increments) Was Epi 1:200,000 Used?: No Injection: Injection made incrementally with constant monitoring and aspiration every ml
--- NOTE | 2016-09-03 13:49 | Anesthesia Procedure Note ---
Peripheral Nerve Blockade - Procedure Physician: Jaiden Carpenter MD Date: 09/03/16 Discussion: Discussed risks/options/alternatives of anesthesia and questions answered. Patient consents. Nursing pain assessment noted. Block Start: 13:35 Block Stop: 13:41 Blocked Employed: Single Injection, Other (saphaneous nerve) Indication: Post-Operative Pain Approach: Left Side Confirmed Position: Supine, Prone, RLD Patient: Consent, Risks/Benefits Discussed, Informed, Post Block Act. Discussed IV Sedation: Yes Sedation: Sedate w/Meaningful Contact Midazolam (mg): 1 Initial Vital Signs: Temperature 98.3 F 09/02/16 09:46 Temperature Source Oral 09/02/16 09:46 Sepsis Recent Fever Within 48 Hours No 09/02/16 09:46 Sepsis Suspicion of Infection No 09/02/16 09:46 Sepsis New/Unexplained Change in Mental Status No 09/02/16 09:46 Sepsis Score/Level No Definite Risk 09/02/16 09:46 Sepsis Action Taken by Nursing No Action 09/02/16 09:46 Pulse Rate 85 09/02/16 09:46 Pulse Rhythm 09/02/16 09:46 Pulse Strength Normal 09/02/16 09:46 Respiratory Rate 16 09/02/16 09:46 Respiratory Effort 09/02/16 09:46 Respiratory Depth Normal 09/02/16 09:46 Respiratory Pattern 09/02/16 09:46 Blood Pressure 146/82 H 09/02/16 09:46 Blood Pressure Mean 103 09/02/16 09:46 Blood Pressure Position Sitting 09/02/16 09:46 Pulse Oximetry 93 09/02/16 09:46 Oxygen Delivery Method 09/02/16 09:46 Post Vital Signs: Temperature 98.4 F 09/03/16 13:03 Pulse Rate 101 H 09/03/16 13:03 Respiratory Rate 16 09/03/16 13:03 Blood Pressure 151/65 H 09/03/16 13:03 Pulse Oximetry 95 09/03/16 13:03 Oxygen Delivery Method Room Air Oxygen Flow Rate 2 Ultrasound Used?: Yes - Nerve Simulator Muscle Response: No Paresthesia/Pain: None - Injectate Ropivacaine (%): 0.5 Ropivacaine (mL): 10 (given in 5 ml increments) Was Epi 1:200,000 Used?: No Injection: Injection made incrementally with constant monitoring and aspiration every ml
[2016-09-03] MEDS: CEFAZOLIN 1 G INJECTION IVP ONE ×2 (13:56→14:58)
[2016-09-03] MEDS ORDERED: FentaNYL 100 MCG/2 ML INJECTION ONE (14:21)
[2016-09-03] MEDS ORDERED: METOPROLOL 5mg/5ml INJECTION IVP ONE (15:09)
[2016-09-03] MEDS ORDERED: PNEUMOCOCCAL 23 VACCINE 0.5ml INJECTION IM ONE (15:32)
--- NOTE | 2016-09-03 15:42 | Remote Fluorsocopy Report ---
Indication: ORIF LT ANKLE PROCEDURE: RF ankle LT 3 view: Encounter: Initial Comparison: Ankle radiographs dated September 02, 2016 Findings: Seven fluoroscopic spot images are submitted for interpretation. Images show open reduction and internal fixation of the distal tibial and fibular fractures with placement of a lateral fibular fixation plate and multiple screws and two partially threaded cannulated screws across the medial malleolus with improved alignment of the fracture fragments. Impression: Intraoperative fluoroscopy as above. Fluoroscopy time is 70 seconds. Fluoroscopy dose is 236.3 mRad. .
[2016-09-03] MEDS ORDERED: ROPIVACAINE 0.5% (5mg/ml) 30ml INJ ONE (15:46)
--- NOTE | 2016-09-03 15:51 | Operative Note ---
- Procedure Date of Admission: 09/03/16 Side: left Preoperative Diagnosis: other (left ankle bimalleolar fracture dislocation) Postoperative Diagnosis: Same as preoperative diagnosis. Operation: Procedures Other and unspecified total abdominal hysterectomy (05/26/07) Other incidental appendectomy (05/26/07) Other removal of both ovaries and tubes at same operative episode (05/26/07) Operation: other (open reduction internal fixation of left bimalleolar ankle fracture) Surgeon: Roby Kamara MD Cable Tender: NERI Nuñez Complications: None. Regional/Trunk Block: Spinal Estimated Blood Loss: See Anesthesia Record. Fluids: Please see Anesthesia Record. Description of Procedure: Mrs. Marcus in her left ankle were identified and marked in the preoperative holding area. She is brought back to operating suite and placed supine on the operating table. A popliteal nerve block was placed in the preoperative holding area. She is placed under general anesthesia using TIVA. The pump was placed in her left buttock. The left lower extremity was then prepped and draped in my normal sterile fashion. Timeout was performed. Leg was exsanguinated and the tourniquet inflated 250 mmHg. Fluoroscopic imaging was used throughout the case. A lateral pursue distal fibula was performed. There was comminution at the fracture site which short oblique Woodward B type fracture. Bone quality was very poor and did not hold with bone clamps. I was unable to perform a lag screw due to fracture comminution and poor bone quality. I selected a distal fibular locking plate. And centered over the distal fibula. For screws placed in nonlocking fashion to help bring the plate down to the bone. The remaining screws were all placed in locking fashion. This did reduce the fracture site nicely and restored the mortise. Then moved to the medial side and made a straight incision directly over the medial malleolus. There was deltoid ligament stuck in the fracture site which was removed. On the anterior half of the malleolus was fractured. He' ll reduce under direct visualization and held in place with a dental pick was placed to K wires in retrograde fashion. I then placed 244 mm cannulated right screws over the K wires. Both achieved good bite. Little fluoroscopic images were taken to ensure good hardware placement and fracture reduction which I was happy with. Both wounds were then thoroughly irrigated with normal saline and closed in layers with 2-0 Vicryl and 3-0 nylon in the skin. Sterile dressing was placed followed by a well molded well-padded posterior slab and stirrup type splint. The tourniquet was then let down the drapes removed and she was allowed with general anesthesia and then taken to the recovery room under the care of anesthesia. She tolerated procedure well and there were no complications.
--- NOTE | 2016-09-03 16:04 | Anesthesia Postoperative Note ---
- Date and Time Date: 09/03/16 Time: 16:00 - Status Patient Participated in Evaluation: Patient Participated in Person Vital Signs: Temperature 98.7 F 09/03/16 15:40 Pulse Rate 100 09/03/16 16:00 Respiratory Rate 20 09/03/16 16:00 Blood Pressure 124/70 09/03/16 16:00 Pulse Oximetry 94 09/03/16 15:41 Oxygen Delivery Method Nasal Cannula Oxygen Flow Rate 4 Respiratory Function: Airway Patent, Regular Respirations Cardiovascular Function: Regular Pulse Mental Status: Alert and Oriented (neurologically unchanged) Pain Intensity: 0 Hydration: IV Infusing Complications During Recover: None Apparent - Follow-Up Instructions Instructions: Per Surgeon
[2016-09-03] MEDS: 1/2 NS 1,000 ML IV SCH (16:41)
--- NOTE | 2016-09-03 16:58 | Progress Note ---
Subjective: F/U: Left Bimalleolar ankle fracture. Doing well this evening post surgery. Had nerve block for anesthesia-denies pain at this time. Pleased to be able to have liquids. No nausea or ab pain. Feels breathing okay-not feeling SOA or congested. No pain with breathing. Denies chest pressure or pain. Ready to get working with therapy to get stronger. Objective Vital signs: Temperature 98.8 F 09/03/16 16:30 Pulse Rate 101 H 09/03/16 16:30 Respiratory Rate 20 09/03/16 16:30 Blood Pressure 131/67 09/03/16 16:30 Pulse Oximetry 93 09/03/16 16:30 Oxygen Delivery Method Nasal Cannula Oxygen Flow Rate 4 Weight: 85.2 kg - Constitutional Present: well nourished, well developed, obese, cooperative - Routine HEENT Exam Head: Present: normocephalic, atraumatic Eye: Present: EOMI, PERRL ENT: Present: mucous membranes moist - Routine Respiratory Exam Present: decreased breath sounds. Absent: respiratory distress, rhonchi, stridor, wheezes, crackles - Routine Cardiovascular Exam Present: RRR - Routine Abdominal Exam Present: soft, normoactive bowel sounds, non distended, non tender. Absent: rebound, guarding - Routine Extremities Exam Absent: cyanosis, clubbing - Routine Musculoskeletal Exam Musculoskeletal: Present: no clubbing or cyanosis, other (Left leg wrapped ) - Routine Skin Exam Present: intact, warm. Absent: mottling - Routine Neurological Exam Present: alert, CN II-XII intact, vision grossly intact, hearing grossly intact. Absent: motor deficit - Routine Psychiatric Exam Present: normal affect, cooperative. Absent: anxious, agitated Results - Labs CBC & Chem 7: 09/03/16 04:20 09/03/16 04:20 Assessment and Plan (1) Closed displaced bimalleolar fracture of left ankle Current visit: Yes Status: Acute 09/03/16: ORIF to left bilmalleolar ankle fracture - Dr Kamara. (2) Gait instability Current visit: Yes Status: Chronic (3) Palpitations Current visit: Yes Status: Chronic (4) CKD (chronic kidney disease) stage 3, GFR 30-59 ml/min Current visit: Yes Status: Chronic (5) Peripheral edema Current visit: Yes Status: Chronic (6) Bipolar 1 disorder Current visit: Yes Status: Acute (7) Tremor Current visit: Yes Status: Acute (8) Obesity (BMI 30-39.9) Current visit: Yes Status: Acute DVT Prophylaxis: SCD's, Lovenox (To start tonight ) GI Prophylaxis: Rantidine Assessment and Plan: Continue 1/2NS until oral drive improves. Continue with pain control. Monitor for post op hypotension. PT/OT consulted for tomorrow to maximize functional status. Continue SCD to right leg-Lovenox to start tomorrow. Encourage IS for pulmonary toilet. Clear liquid diet, advancing as patient able to tolerate. Start Senna Plus BID this evening to help bowel function. MOM and Dulcolax are as needed. Recheck CBC in am to monitor for post op anemia. Will check BMP in am due to IVF and medication use. Case discussed with CM and Dr Kamara. High risk medication in use: IV Dilaudid for pain control. Time spent with patient care 25 minutes. - Time spent with patient 25 - 35 minutes Sepsis Assessment - Evaluation Sepsis screening result: No Definite Risk Hospital Course Summary Disclaimer: The visit summary below is not to be considered part of the above Progress Note. Hospital Course: 09/02/16 Admit under hospitalist service with consultation to Dr. Gloria/Anh. Left ankle fx/dislocation -reduced and splinted in ED per Dr. Gloria -Dr. Kamara going to take over her care, likely sx tomorrow if swelling is controlled -ok to give dose of Lovenox x1 now -pre-op testing ordered (including hgb A1c - one clinic note documented DM and she's had some mild hyperglycemia - DM would affect bone healing) -NPO at midnight -consult Dr. Sanches for metabolic bone eval. Palpitations -check electrolytes, EKG, mag -monitor on tele -TSH was 2.20 in the clinic on 08/10/16 Gait instability; tremor; possible early Parkinson's -baseline: she had been walking with a walker -consult PT/OT postop -saw Dr. 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 Fajardo) -urine Na 59 and osmo 253 in clinic on 08/10/16 -clinic records indicate serum Na typically runs upper end of normal CKD 3 -baseline cr 1.3 home meds reviewed (compared to med list in clinic records as well) -she's on 3 different diuretics: amiloride, furosemide, HCTZ (presumably for edema), which could be contributing to her complaints of excessive thirst and frequent urination - at this time will hold amiloride and HCTZ; continue potassium for now especially since she will be on IVF for sx -continue psych meds Advanced directives -Siena (son) is DPOA -DNR 09/03/16 OP DAY: ORIF of left bimalleolar ankle fracture - Dr Kamara. Continue 1/2NS until oral drive improves. Continue with pain control. Monitor for post op hypotension. PT/OT consulted for tomorrow to maximize functional status. Continue SCD to right leg-Lovenox to start tomorrow. Encourage IS for pulmonary toilet. Clear liquid diet, advancing as patient able to tolerate. Start Senna Plus BID this evening to help bowel function. MOM and Dulcolax are as needed. Recheck CBC in am to monitor for post op anemia. Will check BMP in am due to IVF and medication use.
[2016-09-03] MEDS: ENOXAPARIN 40 MG/0.4 ML INJECTION SQ SCH (20:58)
[2016-09-03] MEDS: ATORVASTATIN 40 MG TABLET PO SCH (21:04)
[2016-09-03] MEDS: RANITIDINE 150 MG TABLET PO SCH (21:04)
[2016-09-03] MEDS: TRAZODONE 50 MG TABLET PO SCH (21:05)
[2016-09-03] MEDS: ACETAMINOPHEN 500 MG TABLET PO PRN (21:20)
[2016-09-03] MEDS: HYDROMORPHONE 2 MG/ML INJECTION IVP PRN (22:26)
[2016-09-04] MEDS: 1/2 NS 1,000 ML IV SCH (04:27)
[2016-09-04] MEDS: HYDROMORPHONE 2 MG/ML INJECTION IVP PRN ×2 (04:30→21:55)
[2016-09-04] MEDS: LORATADINE 10 MG TABLET PO SCH (06:02)
[2016-09-04] MEDS: GABAPENTIN 100 MG CAPSULE PO SCH ×3 (09:15→20:27)
[2016-09-04] MEDS: CALCIUM 600 + VIT D 400 TABLET PO SCH ×2 (09:16→20:19)
[2016-09-04] MEDS: MULTI-VITAMIN + IRON TABLET PO SCH (09:16)
[2016-09-04] MEDS: ESCITALOPRAM 10 MG TABLET PO SCH (09:17)
[2016-09-04] MEDS: FUROSEMIDE 20 MG TABLET PO SCH (09:17)
[2016-09-04] MEDS: PROPRANOLOL 10 MG TABLET PO SCH ×2 (09:18→20:26)
[2016-09-04] MEDS: RALOXIFENE 60 MG TABLET PO SCH (09:28)
--- NOTE | 2016-09-04 10:29 | Metabolic Bone Disease Consult ---
Orthopedic Consultation HPI - Consultation Info Consult Date: 09/04/16 Attending Physician: Jaiden Carpenter MD - History of Present Illness 76 yo female resident at [facility] fell this morning at PT. Has chronic bilateral ankle and pedal edema, but new deformity and left ankle pain. No prior history of ankle pain. Brought to [facility] ED. I was contacted by Dr. Galicia to evaluate. 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 Mcgowan). Hysterectomy 2007. Appendectomy. cholecystectomy. Cystoscopy with dilatation. Bilateral cataracts. Echo in 2007 - preserved EF, possible grade I/IV diastolic dysfunction - Social History Smoking status: Never smoker Medications Home Medications Medication Instructions Recorded Confirmed Type Amiloride HCl 5 mg PO DAILY #0 12/31/09 09/02/16 History Propranolol HCl 5 mg PO BID #0 12/31/09 09/02/16 History hydroCHLOROthiazide 25 mg PO DAILY #0 12/31/09 09/02/16 History [Hydrochlorothiazide] raNITIdine HCl [Ranitidine HCl] 150 mg PO HS #0 10/14/11 09/02/16 History Escitalopram Oxalate [Lexapro] 10 mg PO DAILY #0 11/30/11 09/02/16 History Furosemide 10 mg PO DAILY #0 11/30/11 09/02/16 History Gabapentin 200 mg PO TID #0 11/30/11 09/02/16 History Atorvastatin Calcium 40 mg PO HS #0 04/22/12 09/02/16 History Divalproex ER [Depakote ER] 750 mg PO BID #0 tab 09/01/14 09/02/16 History Raloxifene HCl 60 mg PO DAILY #0 09/01/14 09/02/16 History Acetaminophen [Acetaminophen Extra 500 mg PO Q4H PRN 09/02/16 09/02/16 History Strength] Calcium 600 + D [Caltrate + D] 1 tab PO BID 09/02/16 09/02/16 History Docusate Sodium [Colace] 100 mg PO DAILY PRN 09/02/16 09/02/16 History Loratadine [Claritin] 10 mg PO ACB 09/02/16 09/02/16 History Multivitamin with Iron [One Daily 1 tab PO DAILY 09/02/16 09/02/16 History with Iron] Polyvinyl Alcohol [Artificial 2 drop EACH EYE Q4H PRN 09/02/16 09/02/16 History Tears] Potassium Chloride [Klor-Con 10] 30 meq PO DAILY 09/02/16 09/02/16 History Saliva Substitute Mouthwash 1 dose MM DAILY PRN 09/02/16 09/02/16 History [Biotene Dry Mouth Oral Rinse] Trazodone [Desyrel] 50 mg PO HS 09/02/16 09/02/16 History Trazodone [Desyrel] 100 mg PO HS PRN 09/02/16 09/02/16 History Allergies Allergy/AdvReac Type Severity Reaction Status Date / Time celecoxib Allergy Unknown Verified 09/02/16 10:05 niacin Allergy Unknown Verified 09/02/16 10:05 oxybutynin Allergy Unknown Verified 09/02/16 10:05 Orthopedic Exam Vital signs: Temperature 98.3 F 09/02/16 09:46 Pulse Rate 88 09/02/16 10:52 Respiratory Rate 20 09/02/16 10:52 Blood Pressure 139/93 H 09/02/16 10:52 Pulse Oximetry 87 L 09/02/16 11:04 Oxygen Delivery Method Nasal Cannula Oxygen Flow Rate 2 - Constitutional General Appearance: Present: alert, orientated x3, mild distress, looks stated age - Respiratory Exam Present: non-labored. Absent: wheezes - Cardiovascular Exam Present: Regular Rate/Rhythm, peripheral edema, pedal pulses intact - Abdominal Exam Present: soft. Absent: tenderness, distended - Extremities Exam Absent: cyanosis, clubbing - Detailed Extremities Exam: Vascular Peripheral pulses: 1+ posterior tibialis (L), 1+ dorsalis pedis (L) - Detailed Lower Extremity Exam Knee: Bilateral normal inspection Ankle: Left crepitus, Left dislocation, Left swelling, Left tenderness, Left decreased ROM, Right normal inspection - Integumentary Exam Present: pink, warm, dry, intact - Neurological Exam Present: intact to light touch, no deficits - Psychiatric Exam Present: alert, oriented, attentive Results - Labs Labs: Short CBC 09/04/16 Range/Units 04:50 WBC 9.0 (4.5-11.0) T/MM3 Hgb 11.3 L (12-16) GM/DL Hct 36.8 (36-46) % Plt Count 88 L (130-400) T/MM3 [facility] 09/04/16 04:50 Sodium 144 Potassium 4.0 Chloride 102 Carbon Dioxide 36 H BUN 19.0 H Creatinine 1.1 D Glucose 122 H Calcium 9.8 - Site of Current Fracture Lower Limb: Ankle/Foot - Fracture History History of Fracture Age 50 or Older: No - Risk Factors History of Rheumatoid Arthritis: No Secondary Osteoporosis Due To Condition/Medication: No - Medication Use Nutrtional Supplements: Calcium, Vitamin D - Treatment/Counseling Calcium 1200 mg/day (in divided doses): Yes Vitamin D at least 800-1000 IU/day: Yes Regular Weight Bearing and Muscle Strengthing Exercise: Yes Fall Prevention: Yes Smoking Cessation: Yes Alcohol Comsumption (no more than 2 drinks/day): Yes - Pharmacologic Treatment Recomend Pharmacologic Therapy: No Therapy Not Recommended Due To: Bone Health Assessment Ongoing Pharmacologic Therapy Initiated: No Reason Not Initiating Therapy: Treatment Planned For Future - Bone Mineral Density Testing Was BMD Testing Recommended: Yes BMD Testing: Planned/Scheduled - Written Communication Was Patient Provided With A Letter: Yes Letter Provided To Patient's PCP: Yes Discharge Status: Discharge To Extended Care Facility - Additional Information Patient is a resident of [facility] and will return there. Will probably persue a bone density for her as well Recheck in about 2-3 months Date of Initial Screen: 09/04/16 [age]: [age] F Gender: female Female: Postmenopausal Height/Weight: Weight 85.3 kg - Medications Home Medications: Home Medications Medication Instructions Recorded Confirmed Type Amiloride HCl 5 mg PO DAILY #0 12/31/09 09/02/16 History Propranolol HCl 5 mg PO BID #0 12/31/09 09/02/16 History hydroCHLOROthiazide 25 mg PO DAILY #0 12/31/09 09/02/16 History [Hydrochlorothiazide] raNITIdine HCl [Ranitidine HCl] 150 mg PO HS #0 10/14/11 09/02/16 History Escitalopram Oxalate [Lexapro] 10 mg PO DAILY #0 11/30/11 09/02/16 History Furosemide 10 mg PO DAILY #0 11/30/11 09/02/16 History Gabapentin 200 mg PO TID #0 11/30/11 09/02/16 History Atorvastatin Calcium 40 mg PO HS #0 04/22/12 09/02/16 History Divalproex ER [Depakote ER] 750 mg PO BID #0 tab 09/01/14 09/02/16 History Raloxifene HCl 60 mg PO DAILY #0 09/01/14 09/02/16 History Acetaminophen [Acetaminophen Extra 500 mg PO Q4H PRN 09/02/16 09/02/16 History Strength] Calcium 600 + D [Caltrate + D] 1 tab PO BID 09/02/16 09/02/16 History Docusate Sodium [Colace] 100 mg PO DAILY PRN 09/02/16 09/02/16 History Loratadine [Claritin] 10 mg PO ACB 09/02/16 09/02/16 History Multivitamin with Iron [One Daily 1 tab PO DAILY 09/02/16 09/02/16 History with Iron] Polyvinyl Alcohol [Artificial 2 drop EACH EYE Q4H PRN 09/02/16 09/02/16 History Tears] Potassium Chloride [Klor-Con 10] 30 meq PO DAILY 09/02/16 09/02/16 History Saliva Substitute Mouthwash 1 dose MM DAILY PRN 09/02/16 09/02/16 History [Biotene Dry Mouth Oral Rinse] Trazodone [Desyrel] 50 mg PO HS 09/02/16 09/02/16 History Trazodone [Desyrel] 100 mg PO HS PRN 09/02/16 09/02/16 History
[2016-09-04] MEDS: ACETAMINOPHEN 500 MG TABLET PO PRN ×2 (10:49→20:25)
--- NOTE | 2016-09-04 11:46 | Progress Note ---
<Shantel Mendieta - Last Filed: 09/04/16 11:43> Subjective: Antonette overall is doing well postoperatively. She continues to have ankle pain that spikes with any movement. At rest, the pain is minimal. She would like to have a bowel movement today. She denies nausea or abdominal pain. She occasionally has some shortness of breath, but this is chronic. She states that she probably isn't using the IS as often as she should, and promises to start using it more today. Objective Vital signs: Temperature 98.4 F 09/04/16 07:31 Pulse Rate 104 H 09/04/16 07:31 Respiratory Rate 16 09/04/16 07:31 Blood Pressure 130/68 09/04/16 07:31 Pulse Oximetry 93 09/04/16 07:31 Oxygen Delivery Method Nasal Cannula Oxygen Flow Rate 2 Weight: 85.3 kg - Constitutional Present: no acute distress, well nourished, well developed, obese - Routine HEENT Exam ENT: Present: oropharynx clear - Routine Respiratory Exam Present: CTA bilaterally - Routine Cardiovascular Exam Present: RRR, S1, S2 - Routine Abdominal Exam Present: soft, normoactive bowel sounds, non distended, non tender - Routine Extremities Exam Present: no edema (no edema to right leg. Splint to left leg, left leg is elevated.) - Routine Musculoskeletal Exam Musculoskeletal: Present: limited range of motion (left lower extremity) - Routine Skin Exam Present: intact, dry, warm - Routine Neurological Exam Present: alert, oriented X3 - Routine Psychiatric Exam Present: normal affect, normal thought process Results - Labs CBC & Chem 7: 09/04/16 04:50 09/04/16 04:50 Assessment and Plan (1) Closed displaced bimalleolar fracture of left ankle Current visit: Yes Status: Acute 09/03/16: ORIF to left bilmalleolar ankle fracture - Dr Kamara. (2) Palpitations Current visit: Yes Status: Chronic (3) Gait instability Current visit: Yes Status: Chronic (4) CKD (chronic kidney disease) stage 3, GFR 30-59 ml/min Current visit: Yes Status: Chronic (5) Peripheral edema Current visit: Yes Status: Chronic (6) Bipolar 1 disorder Current visit: Yes Status: Acute (7) Tremor Current visit: Yes Status: Acute (8) Obesity (BMI 30-39.9) Current visit: Yes Status: Acute (9) Hypoxia Current visit: Yes Status: Acute DVT Prophylaxis: Lovenox GI Prophylaxis: Rantidine Resuscitation Status: Do Not Resuscitate Assessment and Plan: Postop day #1, open reduction internal fixation of left bimalleolar ankle fracture -Still needing IV pain control - Dilaudid Hypoxia -Sats as low as 75% on 09/03/16 -Continue I S, DuoNeb as needed -Wean oxygen as able, but she may need to go back to her nursing facility on oxygen temporarily. Chronic kidney disease -Creatinine improved to 1.1, electrolytes stable -Stop IV fluids -We'll need to determine at time of discharge whether or not to restart all of her antihypertensives. When she was admitted, she was on 3 different diuretics. Given her symptoms of excessive thirst and frequent urination, we may want to discontinue at least one of her diuretics at time of discharge. Constipation -Dulcolax suppository today Discharge plan -If remains stable, discharge to assisted on 09/05/16 Sepsis Assessment - Evaluation Sepsis screening result: No Definite Risk Hospital Course Summary Disclaimer: The visit summary below is not to be considered part of the above Progress Note. Hospital Course: 09/02/16 Admit under hospitalist service with consultation to Dr. Gloria/Anh. Left ankle fx/dislocation -reduced and splinted in ED per Dr. Gloria -Dr. Kamara going to take over her care, likely sx tomorrow if swelling is controlled -ok to give dose of Lovenox x1 now -pre-op testing ordered (including hgb A1c - one clinic note documented DM and she's had some mild hyperglycemia - DM would affect bone healing) -NPO at midnight -consult Dr. Sanches for metabolic bone eval. Palpitations -check electrolytes, EKG, mag -monitor on tele -TSH was 2.20 in the clinic on 08/10/16 Gait instability; tremor; possible early Parkinson's -baseline: she had been walking with a walker -consult PT/OT postop -saw Dr. 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 Fajardo) -urine Na 59 and osmo 253 in clinic on 08/10/16 -clinic records indicate serum Na typically runs upper end of normal CKD 3 -baseline cr 1.3 home meds reviewed (compared to med list in clinic records as well) -she's on 3 different diuretics: amiloride, furosemide, HCTZ (presumably for edema), which could be contributing to her complaints of excessive thirst and frequent urination - at this time will hold amiloride and HCTZ; continue potassium for now especially since she will be on IVF for sx -continue psych meds Advanced directives -Siena (son) is DPOA -DNR 09/03/16 OP DAY: ORIF of left bimalleolar ankle fracture - Dr Kamara. Continue 1/2NS until oral drive improves. Continue with pain control. Monitor for post op hypotension. PT/OT consulted for tomorrow to maximize functional status. Continue SCD to right leg-Lovenox to start tomorrow. Encourage IS for pulmonary toilet. Clear liquid diet, advancing as patient able to tolerate. Start Senna Plus BID this evening to help bowel function. MOM and Dulcolax are as needed. Recheck CBC in am to monitor for post op anemia. Will check BMP in am due to IVF and medication use. 09/04/16 11:54 Postop day #1, open reduction internal fixation of left bimalleolar ankle fracture -Still needing IV pain control - Dilaudid Hypoxia -Sats as low as 75% on 09/03/16 -Continue I S, DuoNeb as needed -Wean oxygen as able, but she may need to go back to her nursing facility on oxygen temporarily. Chronic kidney disease -Creatinine improved to 1.1, electrolytes stable -Stop IV fluids -We'll need to determine at time of discharge whether or not to restart all of her antihypertensives. When she was admitted, she was on 3 different diuretics. Given her symptoms of excessive thirst and frequent urination, we may want to discontinue at least one of her diuretics at time of discharge. Constipation -Dulcolax suppository today Discharge plan -If remains stable, discharge to assisted on 09/05/16 <Jaiden Carpenter - Last Filed: 09/04/16 15:39> Objective Vital signs: Temperature 99.8 F 09/04/16 13:15 Pulse Rate 83 09/04/16 13:15 Respiratory Rate 18 09/04/16 13:15 Blood Pressure 110/62 09/04/16 13:15 Pulse Oximetry 93 09/04/16 13:15 Oxygen Delivery Method Nasal Cannula Oxygen Flow Rate 1 Results - Labs CBC & Chem 7: 09/04/16 04:50 09/04/16 04:50 Assessment and Plan (1) Closed displaced bimalleolar fracture of left ankle Current visit: Yes Status: Acute (2) Palpitations Current visit: Yes Status: Chronic (3) Gait instability Current visit: Yes Status: Chronic (4) CKD (chronic kidney disease) stage 3, GFR 30-59 ml/min Current visit: Yes Status: Chronic (5) Peripheral edema Current visit: Yes Status: Chronic (6) Bipolar 1 disorder Current visit: Yes Status: Acute (7) Tremor Current visit: Yes Status: Acute (8) Hypoxia Current visit: Yes Status: Acute (9) Obesity (BMI 30-39.9) Current visit: Yes Status: Acute Assessment and Plan: Have independently interviewed and examined pt. Chart reviewed. Case discussed with my ELECTRO OPTICS ENGINEER. Care plan developed with my supervision; agree with above. Resting this afternoon, but readily awakened. Notes some pain, meds help. Nausea this am, but by lunch was able to take food in well. No ab pain. Breathing feeling okay-not hurting with breathing or congested. On 1L O2. Tolerating therapy. Lungs: decreased, no distress CV: regular AB: soft nt/nd +BS MSE: sleepy, but converses well. Not restless or agitated. LAB: Vit D level low at 29. Plan: Add Vitamin D 2000 units orally daily in addition to her BID Ca/Vit D. IVF stopped. Encourage therapy. Encourage IS. Work on bowel function. Monitor lab. Possible assisted in near future if continues to do well. Hospital Course Summary Disclaimer: The visit summary below is not to be considered part of the above Progress Note.
[2016-09-04] MEDS ORDERED: ALBUTEROL/IPRATROPIUM 2.5mg-0.5mg/3ml NEB AEROSOL PRN (11:51)
[2016-09-04] MEDS ORDERED: FALL RISK - PHARMACY CONSULT MC PRN (12:56)
[2016-09-04] MEDS: NS 1,000 ML IV SCH (13:02)
[2016-09-04 17:30] VITALS: RESP 16
[2016-09-04] MEDS: ENOXAPARIN 40 MG/0.4 ML INJECTION SQ SCH (20:27)
[2016-09-04] MEDS: RANITIDINE 150 MG TABLET PO SCH (21:55)
[2016-09-04] MEDS: ATORVASTATIN 40 MG TABLET PO SCH (21:55)
[2016-09-04] MEDS: TRAZODONE 50 MG TABLET PO SCH (21:58)
[2016-09-05] MEDS: LORATADINE 10 MG TABLET PO SCH (05:41)
[2016-09-05] MEDS: ACETAMINOPHEN 500 MG TABLET PO PRN (07:24)
[2016-09-05 07:33] VITALS: BP 138/65; PULSE 89; TEMP 97.7
[2016-09-05] MEDS: PROPRANOLOL 10 MG TABLET PO SCH (08:51)
[2016-09-05] MEDS: GABAPENTIN 100 MG CAPSULE PO SCH (08:51)
[2016-09-05] MEDS: MULTI-VITAMIN + IRON TABLET PO SCH (08:51)
[2016-09-05] MEDS: CALCIUM 600 + VIT D 400 TABLET PO SCH (08:51)
[2016-09-05] MEDS: RALOXIFENE 60 MG TABLET PO SCH (08:51)
[2016-09-05] MEDS: ESCITALOPRAM 10 MG TABLET PO SCH (08:52)
[2016-09-05] MEDS: FUROSEMIDE 20 MG TABLET PO SCH (08:52)
[2016-09-05] MEDS ORDERED: HYDROCODONE/APAP 5mg/325mg TABLET PO PRN (09:50)
--- NOTE | 2016-09-05 10:34 | Orthopedic Progress Note ---
Date: Subjective/Severity of Illness: No new complaints today. Her pain is controlled. Plan is for discharge back to because the home today. She'll remain nonweightbearing follow-up with us in 2 weeks. Orthopedic Objective Vital signs: Temperature 97.7 F 09/05/16 07:33 Pulse Rate 89 09/05/16 07:33 Respiratory Rate 16 09/05/16 07:33 Blood Pressure 138/65 09/05/16 07:33 Pulse Oximetry 95 09/05/16 07:33 Oxygen Delivery Method Room Air Oxygen Flow Rate 1 Height and Weight: Weight 84 kg - Constitutional General Appearance: Present: alert, orientated x3 - Respiratory Exam Present: non-labored. Absent: wheezes - Cardiovascular Exam Capillary Refill: < 2-3 Seconds - Abdominal Exam Present: soft. Absent: tenderness, distended - Neurological Exam Present: intact to light touch, no deficits - Labs Result Diagrams: 09/05/16 04:49 09/05/16 04:49 Abnormal lab results 09/05/16 09/05/16 Range/Units 04:49 04:49 RBC 3.44 L (4.00-5.20) M/MM3 Hgb 11.0 L (12-16) GM/DL MCV 104.7 H (80-100) UM3 MCHC 30.6 L (31-37) GM/DL RDW Std Deviation 52.0 H (36.9-50.2) FL Plt Count 100 L (130-400) T/MM3 Immature Gran % (Auto) 0.9 H (0.0-0.5) % Lymph % (Auto) 20.3 L (23-45) % Mobile % (Auto) 14.1 H (0-9.0) % Mobile # 1.2 H (0-0.8) T/MM3 Abs Immat Gran (auto) 0.08 H (0.00-0.03) T/MM3 Carbon Dioxide 39 H (22-30) MEQ/L Anion Gap 4 L (5-15) MEQ/L BUN 18.0 H (7-17) MG/DL Glucose 116 H (65-110) MG/DL H & H 09/02/16 09/03/16 09/04/16 Range/Units 13:50 04:20 04:50 Hgb 12.9 12.4 11.3 L (12-16) GM/DL Hct 40.9 40.7 36.8 (36-46) % 09/05/16 Range/Units 04:49 Hgb 11.0 L (12-16) GM/DL Hct 36.0 (36-46) % Orthopedic Assessment and Plan (1) Closed displaced bimalleolar fracture of left ankle Status: Acute Qualifiers: Encounter type: initial encounter Qualified Code(s): S82.842A - Displaced bimalleolar fracture of left lower leg, initial encounter for closed fracture Assessment and Plan: Continue nonweightbearing. Follow up with us in orthopedic clinic in 2 weeks. Hospital Course Summary Disclaimer: The visit summary below is not to be considered part of the above Progress Note. Hospital Course: 09/02/16 Admit under hospitalist service with consultation to Dr. Gloria/Anh. Left ankle fx/dislocation -reduced and splinted in ED per Dr. Gloria -Dr. Kamara going to take over her care, likely sx tomorrow if swelling is controlled -ok to give dose of Lovenox x1 now -pre-op testing ordered (including hgb A1c - one clinic note documented DM and she's had some mild hyperglycemia - DM would affect bone healing) -NPO at midnight -consult Dr. Sanches for metabolic bone eval. Palpitations -check electrolytes, EKG, mag -monitor on tele -TSH was 2.20 in the clinic on 08/10/16 Gait instability; tremor; possible early Parkinson's -baseline: she had been walking with a walker -consult PT/OT postop -saw Dr. 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 Fajardo) -urine Na 59 and osmo 253 in clinic on 08/10/16 -clinic records indicate serum Na typically runs upper end of normal CKD 3 -baseline cr 1.3 home meds reviewed (compared to med list in clinic records as well) -she's on 3 different diuretics: amiloride, furosemide, HCTZ (presumably for edema), which could be contributing to her complaints of excessive thirst and frequent urination - at this time will hold amiloride and HCTZ; continue potassium for now especially since she will be on IVF for sx -continue psych meds Advanced directives -Siena (son) is DPOA -DNR 09/03/16 OP DAY: ORIF of left bimalleolar ankle fracture - Dr Kamara. Continue 1/2NS until oral drive improves. Continue with pain control. Monitor for post op hypotension. PT/OT consulted for tomorrow to maximize functional status. Continue SCD to right leg-Lovenox to start tomorrow. Encourage IS for pulmonary toilet. Clear liquid diet, advancing as patient able to tolerate. Start Senna Plus BID this evening to help bowel function. MOM and Dulcolax are as needed. Recheck CBC in am to monitor for post op anemia. Will check BMP in am due to IVF and medication use. 09/04/16 11:54 Postop day #1, open reduction internal fixation of left bimalleolar ankle fracture -Still needing IV pain control - Dilaudid Hypoxia -Sats as low as 75% on 09/03/16 -Continue I S, DuoNeb as needed -Wean oxygen as able, but she may need to go back to her nursing facility on oxygen temporarily. Chronic kidney disease -Creatinine improved to 1.1, electrolytes stable -Stop IV fluids -We'll need to determine at time of discharge whether or not to restart all of her antihypertensives. When she was admitted, she was on 3 different diuretics. Given her symptoms of excessive thirst and frequent urination, we may want to discontinue at least one of her diuretics at time of discharge. Constipation -Dulcolax suppository today Discharge plan -If remains stable[facility]
--- NOTE | 2016-09-05 12:51 | Discharge Instructions ---
Discharge Plan - Med Rec/Dispo Referrals/Follow Up: Jose C Sanches MD [Physician] - 11/04/16 10:00 am (Dr. Sanches WednesdayNovember 03 at 9:30) Roosevelt Story PA [Physician Manager Assisted Living] - 09/16/16 1:00 pm (for suture removal and xray) Onesimouvangel Instructions: [facility] Ortho Fracture Instructions, [facility] Anh General Instructions Additional Instructions: Follow-up in one week with Dr. Evaristo Osman Prescriptions: New Aspirin, Buffered [Ascriptin] 1 tab PO BID #90 tablet Bisacodyl Supp [Dulcolax] 10 mg RECTALLY DAILY PRN #5 supp PRN Reason: Constipation Hydrocodone/APAP 5/325 [[place] 5/325] 1 tab PO Q4H PRN #20 tablet PRN Reason: Pain Cholecalciferol [Vit. D-3] 2,000 unit PO DAILY #30 tablet Milk of Magnesia [Mom] 30 ml PO DAILY PRN #1 bottle PRN Reason: Constipation Continue Propranolol HCl 5 mg PO BID #0 Escitalopram Oxalate [Lexapro] 10 mg PO DAILY #0 Atorvastatin Calcium 40 mg PO HS #0 Divalproex ER [Depakote ER] 750 mg PO BID #0 tab Trazodone [Desyrel] 50 mg PO HS Trazodone [Desyrel] 100 mg PO HS PRN PRN Reason: Insomnia Potassium Chloride [Klor-Con 10] 30 meq PO DAILY Acetaminophen [Acetaminophen Extra Strength] 500 mg PO Q4H PRN PRN Reason: Pain Docusate Sodium [Colace] 100 mg PO DAILY PRN PRN Reason: CONSTIPATION Loratadine [Claritin] 10 mg PO ACB Calcium 600 + D [Caltrate + D] 1 tab PO BID Polyvinyl Alcohol [Artificial Tears] 2 drop EACH EYE Q4H PRN PRN Reason: Dry Eyes raNITIdine HCl [Ranitidine HCl] 150 mg PO HS #0 Furosemide 10 mg PO DAILY #0 Gabapentin 200 mg PO TID #0 Multivitamin with Iron [One Daily with Iron] 1 tab PO DAILY Saliva Substitute Mouthwash [Biotene Dry Mouth Oral Rinse] 1 dose MM DAILY PRN PRN Reason: Dry Mouth Discontinued hydroCHLOROthiazide [Hydrochlorothiazide] 25 mg PO DAILY #0 Raloxifene HCl 60 mg PO DAILY #0 Amiloride HCl 5 mg PO DAILY #0 Discharge Instructions/Outpatient Orders: Final Provider Discharge Instructions Location: Determined By Patient - Disposition 03 To [facility] ([facility])
[2016-09-05 13:20] VITALS: O2SAT 96
--- NOTE | 2016-09-05 13:20 | Extended Care Facility Orders ---
Admission Orders Admit to:: [facility] Allergies/Adverse Reactions: Allergies celecoxib Allergy (Unknown, Verified 09/02/16 10:05) niacin Allergy (Unknown, Verified 09/02/16 10:05) oxybutynin Allergy (Unknown, Verified 09/02/16 10:05) Admitting Diagnosis: Malleolar fracture Admitting Physician: Jaiden Carpenter MD Attending Physician: Jaiden Carpenter MD Code Status: Do Not Resuscitate Anticiapted Length of Stay: 30 days or less Rehab Potential: good Rehab Prognosis: good Diet: 09/03/16 Dinner Regular Diet [DIET] Diet Modifications: May use Facility Protocol or Standing Orders: Yes May have flu vaccine: Yes Evaluations/Treatment: PT, OT [facility] Certification: I certify that SNF services are required to be given on an Inpatient basis because of the patients need for snf care on a continuing basis for the condition(s) for which he/she received inpatient hospital services prior to his/her transfer to the SNF. SNF inpatient care is necessary for the following reasons Indication for [facility]: Med Admininistration, Postop Assessment Care - Additional Information In Event of Arrest: Start CPR,call 911,send patient to the ER Resident is Aware of Diagnosis: Yes Laboratory/Radiology: CBC and basic metabolic profile on September 08. Results to Dr. Evaristo Osman Referrals: Jose C Sanches MD [Physician] - 11/04/16 10:00 am (Dr. Sanches WednesdayNovember 03 at 9:30) Roosevelt Story PA [Physician Clinical Transplant Coordinator] - 09/16/16 1:00 pm (for suture removal and xray) Additional Orders: REGULAR DIET
--- NOTE | 2016-09-05 18:44 | Discharge Summary ---
Discharge Information Date of admission: 09/02/16 12:47 Attending Physician: Jaiden Carpenter MD Primary care physician: Evaristo Osman MD Consults: 09/02/16 13:16 Physician Consult [CONS] Routine Consulting Provider: Jose C Sanches Reason For Exam: fall from standing w/ ankle fx; met bone consult Ordering Provider has Notified Email Marketing Processor: No 09/02/16 15:15 Doctor [Physician Consult] [CONS] Routine Consulting Provider: Horacio Syed Reason For Exam: cont care Ordering Provider has Notified Email Marketing Processor: Yes 09/02/16 15:42 Physician Consult [CONS] Routine Consulting Provider: Jose C Sanches Reason For Exam: Metabolic Bone Disease Ordering Provider has Notified Email Marketing Processor: No 09/02/16 17:23 Physician Consult [CONS] Routine Consulting Provider: Tor Kamara Reason For Exam: SURGICAL CONSULT Ordering Provider has Notified Email Marketing Processor: Yes - Discharge Diagnosis (1) Closed displaced bimalleolar fracture of left ankle Qualifiers: Encounter type: initial encounter Qualified Code(s): S82.842A - Displaced bimalleolar fracture of left lower leg, initial encounter for closed fracture Status: Acute (2) Palpitations Status: Chronic (3) Gait instability Status: Chronic (4) CKD (chronic kidney disease) stage 3, GFR 30-59 ml/min Status: Chronic (5) Peripheral edema Status: Chronic (6) Bipolar 1 disorder Status: Acute (7) Tremor Status: Acute (8) Obesity (BMI 30-39.9) Status: Acute (9) Hypoxia Status: Acute - Procedures Procedures: Closed reduction of left bimalleolar ankle fracture on 09/02/[address] Gloria ORIF of left bimalleolar ankle fracture on 09/03/[address] Kamara - Laboratory Labs: 09/05/16 04:49 09/05/16 04:49 - Radiology Radiology: 09/02/2016 left ankle x-ray shows displaced closed post traumatic trimalleolar ankle fracture with severe lateral subluxation of the talus X-ray 09/02/2016 shows improved alignment following closed reduction 09/02/2016 tib-fib x-ray shows no acute fracture of the proximal tibia or fibula 09/02/2016 chest x-ray shows no focal pneumonia or overt congestive failure History of Present Illness HPI: Antonette Marcus is a 76 y/o woman who resides at [facility]. She has a hx of tremor, gait instability, and possibly underlying Parkinson's disease. While working with physical therapy on 09/02/16, she reports that she stepped up on a sandstone rock, and almost immediately fell down, injuring her left ankle. She was unable to bear weight. She denies hitting her head or injuring her back/ neck or other areas. She also reports that other than her gait problems, which actually have been improving since off Abilify, she's been in her typical state of health. She was transferred to [facility] [place] following the injury, where an ankle x- ray showed a trimalleolar fx with lateral sublux of the talus. Dr. Gloria was consulted and saw the patient in the ED. He reduced the dislocation and recommended bedrest and surgery tomorrow if her ankle is not too swollen. The hospitalist service was called upon to admit the patient given her comorbid conditions. Objective Vital signs: Temperature 97.7 F 09/05/16 07:33 Pulse Rate 89 09/05/16 07:33 Respiratory Rate 16 09/05/16 07:33 Blood Pressure 138/65 09/05/16 07:33 Pulse Oximetry 96 09/05/16 13:19 Oxygen Delivery Method Room Air Oxygen Flow Rate 1 Weight: 84 kg Comments: On the day of discharge the patient was seen accompanied by her son. She had fair pain control in her ankle after oral [employer]. She denied any shortness of breath or chest pain. She denied any nausea or vomiting. She was anxious about going back to the halfway. She had some incontinence of stool. On exam she was alert and oriented and mildly anxious. Chest is clear to auscultation. Cardiovascular reveals a regular rate and rhythm. Abdomen is soft and nontender. Extremities reveal a cast on the left leg and no significant edema on the right Hospital Course This is a general summary of the patient's hospital course. For more details refer to the complete medical record. Hospital course: 09/02/16 Admit under hospitalist service with consultation to Dr. Gloria/Anh. Left ankle fx/dislocation -reduced and splinted in ED per Dr. Gloria -Dr. Kamara going to take over her care, likely sx tomorrow if swelling is controlled -ok to give dose of Lovenox x1 now -pre-op testing ordered (including hgb A1c - one clinic note documented DM and she's had some mild hyperglycemia - DM would affect bone healing) -NPO at midnight -consult Dr. Sanches for metabolic bone eval. Palpitations -check electrolytes, EKG, mag -monitor on tele -TSH was 2.20 in the clinic on 08/10/16 Gait instability; tremor; possible early Parkinson's -baseline: she had been walking with a walker -consult PT/OT postop -saw Dr. 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 Fajardo) -urine Na 59 and osmo 253 in clinic on 08/10/16 -clinic records indicate serum Na typically runs upper end of normal CKD 3 -baseline cr 1.3 home meds reviewed (compared to med list in clinic records as well) -she's on 3 different diuretics: amiloride, furosemide, HCTZ (presumably for edema), which could be contributing to her complaints of excessive thirst and frequent urination - at this time will hold amiloride and HCTZ; continue potassium for now especially since she will be on IVF for sx -continue psych meds Advanced directives -Siena (son) is DPOA -DNR 09/03/16 OP DAY: ORIF of left bimalleolar ankle fracture - Dr Kamara. Continue 1/2NS until oral drive improves. Continue with pain control. Monitor for post op hypotension. PT/OT consulted for tomorrow to maximize functional status. Continue SCD to right leg-Lovenox to start tomorrow. Encourage IS for pulmonary toilet. Clear liquid diet, advancing as patient able to tolerate. Start Senna Plus BID this evening to help bowel function. MOM and Dulcolax are as needed. Recheck CBC in am to monitor for post op anemia. Will check BMP in am due to IVF and medication use. 09/04/16 11:54 Postop day #1, open reduction internal fixation of left bimalleolar ankle fracture -Still needing IV pain control - Dilaudid Hypoxia -Sats as low as 75% on 09/03/16 -Continue I S, DuoNeb as needed -Wean oxygen as able, but she may need to go back to her nursing facility on oxygen temporarily. Chronic kidney disease -Creatinine improved to 1.1, electrolytes stable -Stop IV fluids -We'll need to determine at time of discharge whether or not to restart all of her antihypertensives. When she was admitted, she was on 3 different diuretics. Given her symptoms of excessive thirst and frequent urination, we may want to discontinue at least one of her diuretics at time of discharge. Constipation -Dulcolax suppository today Discharge plan -If remains stable, discharge to [facility] on 09/05/16 09/05/2016-Dr. Saavedra The patient is doing well medically. She is eating and drinking okay. Bowels are moving. She is mildly anxious but her son states that is not unusual for her after surgery. She is currently on room air with normal saturations. Lab work today shows white count of 8.6, hemoglobin 11, platelets improved to 100 up from 88. Basic metabolic profile is essentially normal. Patient appears stable for discharge. During this hospital course, her hydrochlorothiazide and her amiloride were not restarted and I will continue to hold those at discharge. Will also hold raloxifene for now due to increased risk of DVT. Discussed DVT prophylaxis with Dr. Kamara and he recommended aspirin 325 mg by mouth twice a day. This was discussed with the patient's son and the patient is able to tolerate aspirin and has not had history of gastric ulcers or GI bleed. The patient will need aspirin for 6 weeks postoperatively for DVT prophylaxis. Would recommend follow-up in one week with Dr. Evaristo Osman. Recommend CBC and basic metabolic profile on Wednesday the . O2 at 1-2 L per nasal cannula as needed. Call if needing more than 2 L of oxygen. Patient is being discharged to [facility] in stable condition. Greater than 30 minutes of time was spent on dismissal day. Discharge Plan - Med Rec/Dispo Referrals/Follow Up: Jose C Sanches MD [Physician] - 11/04/16 10:00 am (Dr. Sanches WednesdayNovember 03 at 9:30) Roosevelt Story PA [Physician Economic Research Assistant] - 09/16/16 1:00 pm (for suture removal and xray) Truv Instructions: [facility] [place]o Fracture Instructions, [facility] Anh General Instructions Additional Instructions: Follow-up in one week with Dr. Evaristo Osman Prescriptions: New Aspirin, Buffered [Ascriptin] 1 tab PO BID #90 tablet Bisacodyl Supp [Dulcolax] 10 mg RECTALLY DAILY PRN #5 supp PRN Reason: Constipation Hydrocodone/APAP 5/325 [[employer] 5/325] 1 tab PO Q4H PRN #20 tablet PRN Reason: Pain Cholecalciferol [Vit. D-3] 2,000 unit PO DAILY #30 tablet Milk of Magnesia [Mom] 30 ml PO DAILY PRN #1 bottle PRN Reason: Constipation Continue Propranolol HCl 5 mg PO BID #0 Escitalopram Oxalate [Lexapro] 10 mg PO DAILY #0 Atorvastatin Calcium 40 mg PO HS #0 Divalproex ER [Depakote ER] 750 mg PO BID #0 tab Trazodone [Desyrel] 50 mg PO HS Trazodone [Desyrel] 100 mg PO HS PRN PRN Reason: Insomnia Potassium Chloride [Klor-Con 10] 30 meq PO DAILY Acetaminophen [Acetaminophen Extra Strength] 500 mg PO Q4H PRN PRN Reason: Pain Docusate Sodium [Colace] 100 mg PO DAILY PRN PRN Reason: CONSTIPATION Loratadine [Claritin] 10 mg PO ACB Calcium 600 + D [Caltrate + D] 1 tab PO BID Polyvinyl Alcohol [Artificial Tears] 2 drop EACH EYE Q4H PRN PRN Reason: Dry Eyes raNITIdine HCl [Ranitidine HCl] 150 mg PO HS #0 Furosemide 10 mg PO DAILY #0 Gabapentin 200 mg PO TID #0 Multivitamin with Iron [One Daily with Iron] 1 tab PO DAILY Saliva Substitute Mouthwash [Biotene Dry Mouth Oral Rinse] 1 dose MM DAILY PRN PRN Reason: Dry Mouth Discontinued hydroCHLOROthiazide [Hydrochlorothiazide] 25 mg PO DAILY #0 Raloxifene HCl 60 mg PO DAILY #0 Amiloride HCl 5 mg PO DAILY #0 Discharge Instructions/Outpatient Orders: Final Provider Discharge Instructions Location: Determined By Patient - Disposition 01 Discharged Home, Self-Care
== END 2016-09-05 15:13 | DRG 493 ==
LOC: ED 09:46 → SRG 12:45
PROVIDERS: ADMIT Hospitalist; ATTEND Hospitalist